=== PATIENT | male | born 1940 | race African-American/Black ===

== ENCOUNTER 2021-06-09 12:21 | Outpatient (CLI) | payer OTHER ==
[2021-06-09 21:11] LABS: SARS-CoV-2 PCR by NAA Not Detected (NotDetected)
== END 2021-06-09 12:22 | disposition home or self-care (01) ==
LOC: CSHLAB 12:21
PROVIDERS: ATTEND Internal Medicine Gastroenterology
DX: Z20.822 Contact with and (suspected) exposure to COVID-19 (principal)
CPT/HCPCS: U0003; U0005

== ENCOUNTER 2021-06-10 06:28 | Day surgery (SDC) | payer OTHER ==
[2021-06-07 13:25] VITALS: BMI 28.8
[2021-06-10] MEDS ORDERED: Lidocaine 1% MPF 2 ML VIAL ONE (07:24)
[2021-06-10] MEDS ORDERED: PROPOFOL 20 ML ONE ×2 (08:17→08:40)
[2021-06-10] MEDS ORDERED: Lidocaine 1% PF 5 ML VIAL ONE (08:17)
[2021-06-10] MEDS ORDERED: Glycopyrrolate 0.2 MG/ML 5 ML SYRINGE ONE (08:36)
== END 2021-06-10 09:36 | disposition home or self-care (01) ==
LOC: CSHSDC 06:28
PROVIDERS: ATTEND Internal Medicine Gastroenterology
PROC: 0DB68ZZ Excision of Stomach, Via Natural or Artificial Opening Endoscopic (ICD-10-PCS; principal; 2021-06-10)
DX: K25.9 Gastric ulcer, unspecified as acute or chronic, without hemorrhage or perforation (principal); K29.50 Unspecified chronic gastritis without bleeding; R63.4 Abnormal weight loss; K44.9 Diaphragmatic hernia without obstruction or gangrene; I10 Essential (primary) hypertension; E78.5 Hyperlipidemia, unspecified; M10.9 Gout, unspecified; I25.10 Atherosclerotic heart disease of native coronary artery without angina pectoris; Z95.5 Presence of coronary angioplasty implant and graft; N40.0 Benign prostatic hyperplasia without lower urinary tract symptoms; G47.30 Sleep apnea, unspecified; F32.A Depression, unspecified
CPT/HCPCS: 36416; 88305; J2704

== ENCOUNTER 2021-06-14 12:14 | Day surgery (SDC) | payer OTHER ==
[2021-06-11 11:25] VITALS: BMI 28.8
[~2021-06-14 12:14] MED LIST: Lidocaine 1% PF 5 ML VIAL ONE; PROPOFOL 20 ML ONE
[2021-06-14] MEDS ORDERED: Lidocaine 1% MPF 2 ML VIAL ONE (12:25)
[2021-06-14] MEDS ORDERED: PHENYLEPHRINE-NS 100 MCG/ML 10 ML SYRINGE ONE (13:14)
== END 2021-06-14 14:15 | disposition home or self-care (01) ==
LOC: CSHSDC 12:14
PROVIDERS: ATTEND Internal Medicine Gastroenterology
PROC: 0DJD8ZZ Inspection of Lower Intestinal Tract, Via Natural or Artificial Opening Endoscopic (ICD-10-PCS; principal; 2021-06-14)
DX: R63.4 Abnormal weight loss (principal); K64.9 Unspecified hemorrhoids; I10 Essential (primary) hypertension; E11.9 Type 2 diabetes mellitus without complications; E78.5 Hyperlipidemia, unspecified; M10.9 Gout, unspecified; I25.10 Atherosclerotic heart disease of native coronary artery without angina pectoris; G47.30 Sleep apnea, unspecified; F32.A Depression, unspecified
CPT/HCPCS: J2704